=== PATIENT | male | born 1990 | race Hispanic/Latino ===

== ENCOUNTER 2024-08-24 04:20 | Emergency (ER) | payer OTHER ==
[~2024-08-24] VITALS: Ht 175.3 cm; Wt 123.8 kg
[2024-08-24] MEDS: KETOROLAC TROMETHAMINE 30 MG/ML VIAL IV STA (05:50)
[2024-08-24] MEDS: LACTATED RINGER'S 1,000 ML INJ ONE (05:51)
[2024-08-24] MEDS: ONDANSETRON HCL INJ 2MG/ML 2ML 2 MG/ML VIAL IV STA (05:51)
[2024-08-24] MEDS ORDERED: KETOROLAC TROME10 MG PO (05:55)
[2024-08-24] MEDS ORDERED: FLOMAX0.4 MG PO (05:55)
[2024-08-24] MEDS: Morphine 4mg INJECTION 4 MG/ML INJ IV ONE (06:02)
[2024-08-24 06:22] VITALS: PULSE 90; RESP 18; TEMP 98.1
[2024-08-24 06:43] VITALS: BP 155/88; PULSE 90; RESP 18; TEMP 98.1; O2SAT 98
== END 2024-08-24 06:54 | disposition home or self-care (01) ==
LOC: FSED 04:24
DX: R10.30 Lower abdominal pain, unspecified (principal); N13.2 Hydronephrosis with renal and ureteral calculous obstruction; K76.0 Fatty (change of) liver, not elsewhere classified; R16.0 Hepatomegaly, not elsewhere classified; E66.9 Obesity, unspecified
CPT/HCPCS: 74176; 80053; 81003; 85025; 99284; J1885; J2270; J2405; J7121

== ENCOUNTER 2025-01-23 20:35 | Emergency (ER) | payer OTHER ==
[~2025-01-23] VITALS: Ht 175.3 cm; Wt 117.0 kg
[~2025-01-23 20:35] MED LIST: FLOMAX0.4 MG PO; KETOROLAC TROME10 MG PO
[2025-01-23 20:39] VITALS: PULSE 80; RESP 18; TEMP 99.3
[2025-01-23] MEDS: LIDOCAINE 1% W/EPINEPHRINE 20 ML VIAL INJ STA (21:01)
[2025-01-23] MEDS: LIDOCAINE HCL 2% LOCAL 20 ML VIAL INJ STA (21:01)
[2025-01-23] MEDS: IBUPROFEN 200 MG TAB PO ONE (21:10)
[2025-01-23] MEDS: ACETAMINOPHEN 325 MG TAB PO ONE (21:11)
[2025-01-23] MEDS ORDERED: DOXYCYCLINE HY100 MG PO (21:12)
[2025-01-23] MEDS ORDERED: IBUPROFEN600 MG PO (21:12)
[2025-01-23] MEDS: LIDOCAINE HCL 1% LOCAL INJ 20 ML VIAL INJ ONE (21:16)
[2025-01-23 21:57] VITALS: BP 131/81; PULSE 79; RESP 18; TEMP 99; O2SAT 96
== END 2025-01-23 21:57 | disposition home or self-care (01) ==
LOC: FSED 20:39
DX: L05.01 Pilonidal cyst with abscess (principal); F17.210 Nicotine dependence, cigarettes, uncomplicated
CPT/HCPCS: 10081; 99283; J2003